=== PATIENT | female | born 1940 | race Caucasian/White ===

== ENCOUNTER 2017-06-15 06:19 | Inpatient (IN) | payer MEDICARE ==
[~2017-06-15] VITALS: Ht 160 cm; Wt 73.0 kg
[2017-06-15] MEDS: NS + KCL 20 MEQ INJ 1,000 ML IV SCH ×2 (01:13→14:00)
[~2017-06-15 06:19] MED LIST: AMLO10TA2 PO; ATOR80TA45 PO; ESTR1.25 PO; LAMO100T PO; METO50TA PO; MIRTA15 PO; WARF-22 PO
[2017-06-15] MEDS ORDERED: FAMOTIDINE 20 MG/2 ML VIAL ONE (06:54)
[2017-06-15] MEDS ORDERED: SODIUM CHLOR 0.9% 1000 ML INJ 1,000 ML IV SCH (07:00)
[2017-06-15] MEDS ORDERED: SODIUM CHLORID 0.9% 500 ML IV PRN (07:00)
[2017-06-15] MEDS ORDERED: LACTATED RINGER'S 1000 ML IV PRN (07:00)
[2017-06-15] MEDS ORDERED: VANCOMYCIN 1000 MG/NS 250 ML IV SCH ×2 (07:00)
[2017-06-15] MEDS ORDERED: POVIDONE IODINE 5% (ANTISEPSIS KIT) 4 APPLICATIONS EACH NARE PRN (07:00)
[2017-06-15] MEDS ORDERED: CHLORHEXIDINE GLUCONATE 2 % 1 PACK (2 CLOTHS) TOPICAL PRN (07:00)
[2017-06-15] MEDS ORDERED: METOPROLOL TARTRATE 25 MG TAB PO PRN (07:00)
[2017-06-15 07:08] LABS: INTERNATIONAL NORMALIZED RATIO 1.1 RATIO; PROTHROMBIN TIME - PATIENT 10.8 SEC (9.8-11.6)
[2017-06-15] MEDS ORDERED: NEXI40CA PO (07:13)
[2017-06-15] MEDS ORDERED: ARTIFICIAL TEARS OPTH OINT 3.5 APPLIC/3.5 GM TUBO ONE (07:21)
[2017-06-15] MEDS ORDERED: PROPOFOL 500 MG/50 ML INJ 150 ML ONE (07:21)
[2017-06-15] MEDS ORDERED: ACETAMINOPHEN 1000 MG/100 ML 100 ML IV ONE (07:21)
[2017-06-15] MEDS ORDERED: VANCOMYCIN HCL 1000 MG VIAL ONE (08:18)
[2017-06-15] MEDS ORDERED: GELFOAM SIZE 100 ONE (08:18)
[2017-06-15] MEDS ORDERED: GENTAMICIN SULFATE 80 MG/2 ML VIAL ONE (08:18)
[2017-06-15] MEDS ORDERED: BUPIVACAINE/EPINEPHRINE 0.5% PF 30 ML VIAL ONE (08:18)
[2017-06-15] MEDS ORDERED: THROMBIN (TOPICAL) 5,000 UNIT VIAL ONE (08:18)
[2017-06-15] MEDS ORDERED: ceFAZolin 2 GM PREMIX 50 ML ONE (08:42)
[2017-06-15] MEDS ORDERED: MORPHINE SULFATE 4 MG/ML INJ IV PUSH PRN (09:30)
[2017-06-15] MEDS ORDERED: ACETAMINOPHEN 325 MG TAB PO PRN (09:45)
[2017-06-15] MEDS ORDERED: diphenhydrAMINE HCL 50 MG/ML VIAL IV PUSH PRN (09:45)
[2017-06-15] MEDS ORDERED: NALOXONE HCL 0.4 MG/ML AMP IV PUSH PRN (09:45)
[2017-06-15] MEDS ORDERED: SODIUM CHLORID 0.9% 500 ML INJ 500 ML IV ONE (12:00)
[2017-06-15] MEDS ORDERED: ceFAZolin INJ 1,000 MG VIAL IV ONE (12:00)
[2017-06-15] MEDS ORDERED: ONDANSETRON HCL 4 MG/2 ML VIAL IV ONE (12:00)
[2017-06-15] MEDS ORDERED: PHENYLEPH/NS 1000 MCG/10 ML SYR IV ONE (12:00)
[2017-06-15] MEDS ORDERED: LIDOCAINE HCL 1% PF 5 ML SYRINGE OTHER ONE (12:00)
[2017-06-15] MEDS ORDERED: ROCURONIUM INJ 50 MG/5 ML SYRINGE IV PUSH ONE (12:00)
[2017-06-15] MEDS ORDERED: NEOSTIGMINE 5 MG/5 ML SYRINGE IV PUSH ONE (12:00)
[2017-06-15] MEDS ORDERED: PROPOFOL 200 MG/20 ML AMP IV ONE (12:00)
[2017-06-15] MEDS ORDERED: LACTATED RINGER'S 1000 ML INJ 2,000 ML IV ONE (12:00)
[2017-06-15] MEDS ORDERED: ePHEDrine/NS 25 MG/5 ML SYRINGE IV ONE (12:00)
[2017-06-15] MEDS ORDERED: DEXAMETHASONE SOD PHOS 4 MG/ML VIAL IV ONE (12:00)
[2017-06-15] MEDS ORDERED: GLYCOPYRROLATE 1 MG/5 ML SYRINGE IV PUSH ONE (12:00)
[2017-06-15] MEDS ORDERED: DO NOT ADM ANY ANTICOAGULANT DRUGS PRN (13:37)
[2017-06-15] MEDS ORDERED: MIDAZOLAM HCL 2 MG/2 ML VIAL ONE (13:55)
[2017-06-15] MEDS ORDERED: MORPHINE SULFATE 4 MG/ML INJ ONE (13:56)
[2017-06-15] MEDS: HYDROmorphone HCL PCA 6 MG/30 ML IV SCH (14:00)
[2017-06-15] MEDS: PCA - TOTAL MG DILAUDID DELIVERED PER SHIFT SCH ×2 (14:00→22:00)
--- NOTE | 2017-06-15 14:27 | RADRPT ---
EXAM DATE/TIME: 06/15/2017 09:38 [place] COMPARISON: No previous studies available for comparison. INDICATIONS : Post-op L2-L3 posterior lumbar fusion. MEDICAL HISTORY : None. SURGICAL HISTORY : None. ENCOUNTER: Initial ACUITY: 1 day PAIN SCORE: Non-responsive. LOCATION: Lumbar spine. CONCLUSION: Fluoroscopic images during placement of rods and screws at L2-3. Intervertebral disc device also seen . Jose Peters MD on June 15, 2017 at 14:23 Board Certified Radiologist. This report was verified electronically.
[2017-06-15] MEDS ORDERED: MORPHINE SULFATE 2 MG/ML INJ IV PUSH PRN (15:00)
[2017-06-15 16:05] VITALS: BP 136/71; PULSE 76; RESP 18; TEMP 98.1; O2SAT 94
[2017-06-15] MEDS: ceFAZolin 2 GM PREMIX 50 ML IV SCH (16:48)
--- NOTE | 2017-06-15 17:20 | PD.OP ---
Operative Report Date of Surgery: Jun 15, 2017 Preoperative Diagnosis: L2-3 spondylolisthesis Postoperative Diagnosis: L2-3 spondylolisthesis Procedure: L2-L3 laminectomy, interbody arthrodhesis using PEEK cage and autologous bone graft, L2-L3 instrumental fixation using transpedicular screws and rods, L2-L3 posterolateral fusion using autologous bone graft. Microsurgical dissection Anesthesia: general Surgeon: Roger Gilman [facility] Nurse Practitioner(s): Daphney Rodriguez Operation and Findings: INDICATIONS FOR THE SURGICAL PROCEDURE ms Bhatia is a 77 year-old female who presented with intractable mechanical back pain and hernando evidence of L3 left lower rextremity radiculopathy secondary to severe degenerative disk disease, spondylolisthesis, and secondary stenosis. She failed maximum nonsurgical management including multiple modalities of conservative treatment as well as pain management interventions by an interventional pain specialist. A surgical decompression and arthrodhesis were indicated as a last resort. The [id number] details of the procedure, indications, alternatives, risks and potential complications were fully discussed with the patient. The patient fully understood. All the questions were answered. No guarantees were given. The patient voiced requesting the procedure and provided informed consents. The patient was offered the alternative of delaying the procedure and continuing with nonsurgical management. DETAILS OF THE SURGICAL PROCEDURE Prior to the procedure, the surgical incision was marked in the preoperative surgical holding room, and the procedure, risks, and potential complications revisited with the patient. Placement of electrodes for intraoperative neurophysiological monitoring was completed. The patient was taken to the operative room, and following induction of general anesthesia, endotracheal intubation was performed. A He catheter, bilateral RAIN hose and sequential compression devices were placed and kept throughout the procedure. She was carefully positioned prone, over a Marco Antonio table over a soft gel bolsters. All pressure in the preoperative surgical holding room points were carefully padded with eggcrate and gel mattress. The eyes were tapped shut after ointment was applied by the anesthesiologist to prevent corneal abrasion. A Kassidy hugger was placed over the expossed lower body to maintain control of the core body temperature. The electrophysiological team placed the needles and electrodes in their proper location and baseline SSEP's and motor evoked potentials were registered. The entrance to each pedicles was marked using a C arm. The lumbar region was prepped and draped in the usual sterile fashion. The surgical procedure was performed in several steps as follow: SURGICAL APPROACH Once the patient was positioned, a localizing cross-table lateral x-ray was performed with a C-arm. Two paramedian small incisions were outlined on the skin approximately 3cm from the midline. The skin incisions were made with a # 10 blade. Small bleeders were controlled with the cautery. The dissection was then carried out into deeper planes and through the thoracolumbar fascia with a Bovie. The intermuscular septum was identified and the muscles were blunted dissected along the septum. The facets and transverse process of L2-3 were exposed and the proper anatomical landmarks were identified. A microsurgical self-retaining retractor was placed on the incision, and a localizing lateralizing cross-table x-ray was performed with an instrument underneath a lamina of the lumbar spine. INSTRUMENTAL FIXATION At this point in the procedure, placement of bilateral transpedicular screws was necessary for stabilization of the spine. Initially, the entry point for the screw was selected anatomically at the junction of the facet, with the transverse process, and the pars interarticularis at L2-3. This was started with a Giamshetti needle, followed by the use of an an wire, and then a tap was used to create the threads for the screws. Finally bilateral transpedicular screws were carefully placed bilaterally at L2-3 under fluoroscopic visualization. An appropriate purchase was achieved with all screws. The position of each screw was assessed anatomically with an AP, lateral , oblique Xrays. An intraoperative scan view of the spine was then performed using the iso-centric c-arm. Each screw was then assessed electrophysiologically stimulating each screw with a nerve stimulator. HARVESTING OF ILIAC CREST BONE A fascial incision was then made over the patient's right posterior iliac crest. The fascia was carefully opened with a Bovie and the posterior iliac crest was exposed. A small cortical window was created with an osteotome. Cancellous bone was then harvested, to be used during the interbody arthrodesis and the posterolateral fusion. Once an appropriate amount of bone was obtained , the incision was irrigated with antibiotic solution and hemostasis secured by packing the iliac crest with Surgicel. The cortical window was then repositioned and secured using 0 Vicryl sutures. The incision was irrigated and the fascia was closed with interrupted 0 Vicryl sutures. The subcutaneous tissue was approximated with 3-0 Vicryl sutures. SURGICAL DECOMPRESSION There was significant mass effect with compression of the neural structures. In order to relieve neural compression, it was necessary to perform a decompressive laminectomy, with decompression of the spinal canal and bilateral lateral recesses. Note that the scope of such decompression was significantly more extensive than the minimal exposure necessary to perform an interbody fusion, as there was extreme facet arthropathy with near complete collapse of the disk spaces and severe stenosis cause by the hyperthrophic joint facets. At this point of the procedure the operative microscope was draped in the usual sterile fashion and brought to the field. The rest of the surgical procedure was performed using microdissection technique with the exception of the closure. Under the operating microscope, a decompressive laminectomy was carried out at L3-L4as follow: The laminae, base of the spinous processes and facets were carefully drilled exposing the ligamentum flavum. The facets were abnormal with severe spondylolisthesis and gross mechanical instability. A large disk protusion was compressing the neural structures and exiting nerve roots. A near complete facetectomy was necessary resulting in further mechanical instability. The ligamentum flavum appeared hypertrophic, resulting on mass effect on the dorsal surface of the neural structures. The superior free border of the ligamentum flavum was elevated with a ligament dissector and the ligamentum flavum was removed with a 3 mm Kerrison forceps. The ligament was very adherent to the dural sac and during the dissection, ans extreme care was taken during the dissection. The exiting nerve roots were identified, and a wide foraminotomy was performed with a Kerrison in their trajectory towards the neural foramen. A small durotomy could not be avoided given the dural thinning, adhesions and scar tissue. This was repaired in a water-thigh fasion using a 6- 0 Prolene. Epidural veins located laterally to the dural sac were coagulated with the bipolar cautery, and then incised using microscissors. Gentle medial retraction of the dural sac allowed me to expose the disc space for the discectomy. Upon completion of the discectomy, an excellent decompression of the neural structures was achieved. Increased motion was noted, consistent with mechanical instability. INTERBODY ARTHRODHESIS At this point of the procedure, the annulus fibrosus of the disk was carefully coagulated with a bipolar cautery and incised using an 11 bladed knife. Then, a microdiscectomy was carried out in a standard fashion using a combination of straight and up-biting pituitary forceps. A reverse angle curette was applied underneath the posterior longitudinal ligament, and used to push the disk fragments into the disk space, so they can be safely removed with a pituitary forceps. Once the discectomy was completed, it was necessary to decorticate the endplates, in order to eliminate the cartilaginous endplate and to expose healthy bone appropriate to perform the interbody fusion. The endplates at L2-3 were then thoroughly decorticated using increasing size bone kim and ring curets, eliminating the cartilaginous fragments from both, the superior and inferior endplates. A disk space distractor was applied to the pedicle screws and gentle distraction was applied. This maneuver was assisted by the use of a disk distractor. The patient had severe facet arthropathy. Once a thorough preparation of the disk space was achieved, the disk space was irrigated with antibiotic solution, and the interbody fusion was performed by carefully impacting PPEK cages filled with autologous iliac crest bone graft. A solid position of the cage with good purchase was achieved. The position of the cages were assessed anatomically with a probe and radiologically with the C-arm. POSTEROLATERAL FUSION The posterolateral fusion is a critical component to the procedure, to prevent future fatigue and failure of the instrumental fixation. Initially, the transverse processes of the vertebral bodies, lateral surface of the facets and the lateral gutters of the spine were carefully cleaned, eliminating all soft tissue and muscle attachments. The area was then irrigated with a large amount of antibiotic solution. Subsequently, the transverse processes, lateral surface of the facets, and lateral gutters of the spine were thoroughly decorticated using the TPS drill with a 5mm cutting josemanuel, exposing cancellous bone, in preparation for the posterolateral fusion. The incision was again irrigated with antibiotic solution. Then, the posterolateral fusion was then performed by carefully packing the lateral gutters of the spine at L2-3 with autologous bone combined with demineralized bone matrix. I packed as much bone as possible. COMPLETION OF THE INSTRUMENTATION AND CLOSURE The rods were brought to the field, applied to all the screws, and the screw caps were sequentially applied. Compression was performed between the pedicle screws, and final tightening of the screws was completed using a torque wrench. The incision was again thoroughly irrigated with several liters of antibiotic solution, and hemostasis secured with the bipolar cautery. A Valsalva Maneuver performed by the anesthesiologist failed to show any evidence of cerebrospinal fluid leak or bleeding. The dural closure was reinforced using Duraseal. The incision was then closed in planes. 0 Vicryl was used in an interrupted fashion to close the thoracolumbar fascia and the superficial fascia. The subcutaneous tissue was then approximated using 3-0 Vicryl in an interrupted fashion. Special care was taken to avoid space. The skin was then closed with 4-0 Vicryl in a running, subcuticular fashion. Dermabond was applied to the skin. Each plane of closure was irrigated with antibiotic solution. At the end of the procedure the sponge, needle and instrument counts were all correct. Estimated blood loss was 250 cc. No blood transfusion was given. The entire procedure was performed using continuous electrophysiological monitoring of the somatosensorial evoked potentials and EMG. The patient received prophylactic antibiotics. The patient was then extubated and transferred to the recovery room in stable condition. Roger Gilman MD Jun 15, 2017 17:20
[2017-06-15] MEDS: MIRTAZAPINE 15 MG TAB PO SCH (20:05)
[2017-06-15] MEDS: ATORVASTATIN 80 MG TAB PO SCH (20:05)
[2017-06-15 20:32] VITALS: BP 121/72; PULSE 80; RESP 16; TEMP 97.7; O2SAT 96
[2017-06-15 23:45] VITALS: O2SAT 95
[2017-06-16 00:10] VITALS: BP 145/66; PULSE 84; RESP 16; TEMP 97.1; O2SAT 96
[2017-06-16] MEDS: ceFAZolin 2 GM PREMIX 50 ML IV SCH (01:13)
[2017-06-16 04:10] VITALS: BP 129/57; PULSE 86; RESP 16; TEMP 97.5; O2SAT 95
[2017-06-16] MEDS: HYDROmorphone HCL PCA 6 MG/30 ML IV SCH (04:23)
[2017-06-16] MEDS: NS + KCL 20 MEQ INJ 1,000 ML IV SCH (05:45)
[2017-06-16] MEDS: PCA - TOTAL MG DILAUDID DELIVERED PER SHIFT SCH ×2 (05:52→22:00)
[2017-06-16 08:00] VITALS: BP 123/63; PULSE 78; RESP 17; TEMP 97.9; O2SAT 96
[2017-06-16] MEDS ORDERED: ESTROGENS CONJUGATED 1.25 MG TAB PO SCH (09:00)
[2017-06-16] MEDS ORDERED: PANTOPRAZOLE SODIUM 40 MG VIAL IVP PRN (09:00)
[2017-06-16 09:05] LABS: AUTOMATED NEUTROPHIL # 9.8 TH/MM3 (1.8-7.7); BASOPHIL % 0.2 % (0.0-2.0); EOSINOPHIL % 0.1 % (0.0-4.0); HEMATOCRIT 30.2 % (35.0-46.0); HEMOGLOBIN 9.9 GM/DL (11.6-15.3); LYMPH % 9.9 % (9.0-44.0); LYMPHOCYTE # 1.2 TH/MM3 (1.0-4.8); MEAN CELL VOLUME 85.2 FL (80.0-100.0); MEAN CORPUSCULAR HGB CONC 32.8 % (32.0-36.0); MEAN PLATELET VOLUME 8.2 FL (7.0-11.0); MONO % 9.6 % (0.0-8.0); MONOCYTE # 1.2 TH/MM3 (0-0.9); NEUT % 80.2 % (16.0-70.0); PLATELET COUNT 298 TH/MM3 (150-450); RED BLOOD COUNT 3.54 MIL/MM3 (4.00-5.30); RED CELL DISTRIBUTION WIDTH 14.2 % (11.6-17.2); WHITE BLOOD COUNT 12.2 TH/MM3 (4.0-11.0)
[2017-06-16 09:13] LABS: BICARBONATE 23.4 MEQ/L (21.0-32.0); CALCIUM 7.9 MG/DL (8.5-10.1); CREATININE 1.44 MG/DL (0.50-1.00)
--- NOTE | 2017-06-16 09:18 | PD.CONS ---
HPI Service [facility] Hospitalists Consult Requested By Dr. Gilman Reason for Consult post operative medical management Primary Care Physician Non-Staff Diagnoses: History of Present Illness This a 77 female patient with past medical history which includes hypertension, CVA with no residual effects, anticoagulation therapy and Coumadin, hyperlipidemia, iron deficiency anemia, non-Hodgkin's lymphoma in remission, multiple renal cyst, GERD and chronic neck pain. Patient resting able to awake with verbal stimuli. We have been consulted to assist with medical management status post L2 to L3 laminectomy, interbody arthrodesis using PEEK cage and autologous bone graft, L2-L3 instrumental fixation using transpedicular screws and rods, L2-L3 posterolateral fusion using autologous bone graft. Microsurgical dissection with Dr. Gilman 06/15/17. Patient denies pain at this time on Dilaudid FINISHING TRIMMER. Patient also on strict bedrest per neurosurgery until brace arrives tomorrow. Patient reports dry mouth, offers no other complaints at this time. Review of Systems Constitutional: COMPLAINS OF: Fatigue, DENIES: Fever, Chills Respiratory: DENIES: Cough, Sputum production, Shortness of breath Cardiovascular: DENIES: Chest pain, Palpitations, Lower Extremity Edema Gastrointestinal: DENIES: Abdominal pain, Constipation, Diarrhea, Nausea, Vomiting Musculoskeletal: DENIES: Back pain, Neck pain Neurologic: DENIES: Abnormal gait, Headache, Speech Problems Psychiatric: DENIES: Anxiety, Confusion, Depression Past Family Social History Past Medical History hypertension, CVA with no residual effects, hyperlipidemia, iron deficiency anemia, non-Hodgkin's lymphoma in remission, multiple renal cyst, GERD, chronic neck pain Past Surgical History Spinal fusion 2006, discectomy, vaginal hysterectomy, colonoscopy with polypectomy, EGD positive H. pylori 2009 tumor removed left groin 2009 Reported Medications Nexium (Esomeprazole DR) 40 Mg Capdr 40 Mg PO DAILY Mirtazapine 15 Mg Tab 15 Mg PO HS Atorvastatin (Atorvastatin Calcium) 80 Mg Tab 80 Mg PO HS Lamotrigine 100 Mg Tab 100 Mg PO DAILY Amlodipine (Amlodipine Besylate) 10 Mg Tab 10 Mg PO DAILY Warfarin 10 Mg Tab 10 Mg PO DAILY Metoprolol Tartrate 50 Mg Tab 50 Mg PO DAILY Premarin (Estrogens Conjugated) 1.25 Mg Tab 1.25 Mg PO DAILY Allergies: Coded Allergies: No Known Allergies (Verified Allergy, Severe, 06/15/17) Active Ordered Medications Current Medications Medications (Trade) Dose Ordered Sig/Saurav Route Start Time Stop Time Status Last Admin Lactated Ringer's 1,000 ml @ 30 mls/hr Q24H PRN IV 06/15/17 07:00 06/18/17 06:59 06/15/17 07:00 Sodium Chloride 500 ml @ 30 mls/hr [id number] PRN IV 06/15/17 07:00 06/18/17 06:59 (Lopressor) 25 mg ELEVATING GRADER OPERATOR PRN PO 06/15/17 07:00 06/18/17 06:59 (Betadine 5% Antisepsis Kit) 1 applic ELEVATING GRADER OPERATOR PRN EACH NARE 06/15/17 07:00 06/18/17 06:59 06/15/17 07:00 (Chlorhexidine 2% Cloth) 3 pack ELEVATING GRADER OPERATOR PRN TOPICAL 06/15/17 07:00 06/18/17 06:59 06/15/17 06:30 Potassium Chloride/Sodium Chloride 1,000 ml @ 100 mls/hr Q10H IV 06/15/17 09:45 06/15/17 01:13 Cefazolin Sodium/ Dextrose 50 ml @ 100 mls/hr Q8H IV 06/15/17 17:00 06/16/17 09:29 06/16/17 01:13 (Protonix Inj) 40 mg DAILY PRN IVP 06/16/17 09:00 (Morphine Inj) 2 mg Q4H PRN IV PUSH 06/15/17 15:00 (Tylenol) 650 mg Q4H PRN PO 06/15/17 09:45 (Narcan Inj) 0.4 mg UNSCH PRN IV PUSH 06/15/17 09:45 (Benadryl Inj) 25 mg Q6H PRN IV PUSH 06/15/17 09:45 (Dilaudid FINISHING TRIMMER Inj) 6 mg UNSCH IV 06/15/17 10:00 06/16/17 04:23 FINISHING TRIMMER Dosage Infused (Pha) 1 Q8HR .XX 06/15/17 14:00 06/16/17 05:52 (Norvasc) 10 mg DAILY PO 06/16/17 09:00 (Lipitor) 80 mg HS PO 06/15/17 21:00 06/15/17 20:05 (Premarin) 1.25 mg DAILY PO 06/16/17 09:00 Future Hold (LaMICtal) 100 mg DAILY PO 06/16/17 09:00 (Lopressor) 50 mg DAILY PO 06/16/17 09:00 (Remeron) 15 mg HS PO 06/15/17 21:00 06/15/17 20:05 (Protonix) 40 mg DAILY PO 06/16/17 09:00 Miscellaneous Information ALL NURSING DEPARTME... UNSCH PRN .XX 06/15/17 13:37 06/16/17 13:36 (Flu (Quadrivalent) Vaccine Inj) 0.5 ml ONCE ONCE IM 06/16/17 10:00 06/16/17 10:01 Family History Reviewed and noncontributory Social History Lives alone Never smoked Denies EtOH use Physical Exam Vital Signs Vital Signs Date Time Temp Pulse Resp B/P (MAP) Pulse Ox O2 Delivery O2 Flow Rate FiO2 06/16/17 05:52 15 06/16/17 04:23 16 06/16/17 04:10 97.5 86 16 129/57 (81) 95 06/16/17 00:10 97.1 84 16 145/66 (92) 96 06/15/17 23:45 95 Nasal Cannula 2.00 06/15/17 22:00 16 06/15/17 20:32 97.7 80 16 121/72 (88) 96 06/15/17 16:05 98.1 76 18 136/71 (92) 94 06/15/17 15:40 79 16 122/57 (78) 93 Nasal Cannula 2 06/15/17 15:30 76 16 125/60 (81) 93 Nasal Cannula 2 06/15/17 15:15 79 16 122/61 (81) 93 Nasal Cannula 2 06/15/17 15:00 77 16 124/59 (80) 93 Nasal Cannula 2 06/15/17 14:45 79 16 110/61 (77) 95 Nasal Cannula 2 06/15/17 14:30 75 16 121/64 (83) 94 Nasal Cannula 2 06/15/17 14:15 79 16 117/57 (77) 94 Nasal Cannula 2 06/15/17 14:00 77 16 116/58 (77) 94 Nasal Cannula 2 06/15/17 14:00 16 06/15/17 13:43 98.1 84 16 114/57 (76) 94 Nasal Cannula 3 Physical Exam GENERAL: This is a well-nourished, well-developed patient, drowsy on FINISHING TRIMMER but in no apparent distress. EYES: Extraocular motions intact. No scleral icterus. No injection or drainage. CARDIOVASCULAR: Regular rate and rhythm RESPIRATORY: Clear to auscultation. Breath sounds equal bilaterally. GASTROINTESTINAL: Abdomen soft, non-tender, nondistended. MUSCULOSKELETAL: Extremities without clubbing, cyanosis, or edema. No joint tenderness, effusion, or edema noted. No calf tenderness. Negative Homans sign bilaterally. NEUROLOGICAL: drowsy able to awake to voice. No focal deficits. Motor and sensory grossly within normal limits. 4-5 out of 5 muscle strength in all muscle groups. Normal speech. Laboratory Laboratory Tests Test 06/16/17 08:01 Assessment and Plan Problem List: (1) Spondylolisthesis at L2-L3 level ICD Codes: M43.16 - Spondylolisthesis, lumbar region Plan: - Status post L2 to L3 laminectomy, interbody arthrodesis using PEEK cage and autologous bone graft, L2-L3 instrumental fixation using transpedicular screws and rods, L2-L3 posterolateral fusion using autologous bone graft. Microsurgical dissection with Dr. Gilman 06/15/17 - Pain management with Dilaudid FINISHING TRIMMER (2) HTN (hypertension) ICD Codes: I10 - Essential (primary) hypertension Plan: - Chronic continue patient's home Amlodipine 10 mg PO daily - monitor BP trend (3) CVA (cerebral vascular accident) ICD Codes: I63.9 - Cerebral infarction, unspecified Plan: - Continue home Atorvastatin 80mg - on Coumadin at home which is currently on hold due to surgery (4) Non-Hodgkin lymphoma ICD Codes: C85.90 - Non-Hodgkin lymphoma, unspecified, unspecified site Plan: Follows with Dr. Kumar (5) Hyperlipidemia ICD Codes: E78.5 - Hyperlipidemia, unspecified Plan: - Continues atorvastatin 80 mg PO daily Assessment and Plan Patient examined. Assessment and plan formulated with Agatha Wei PA-C. I agree with the above. - appropriate home medications resumed - will resume anticoagulation when okay with Dr. Gilman - observe blood pressure readings. Agatha Wei Jun 16, 2017 09:18 Garrick Del Real DO Jun 17, 2017 14:04
[2017-06-16] MEDS: lamoTRIgine 100 MG TAB PO SCH (09:19)
[2017-06-16] MEDS: PANTOPRAZOLE SOD 40 MG DELAYED RELEASE TAB PO SCH (09:20)
[2017-06-16] MEDS: METOPROLOL TARTRATE 50 MG TAB PO SCH (09:20)
--- NOTE | 2017-06-16 09:33 | HHI.NSPN ---
(Geri Vallecillo) Note Status Status: Progress Note (Geri Vallecillo) Interval History Interval History Ms. Bhatia s/p L2-L3 laminectomy, interbody arthrodhesis using PEEK cage and autologous bone graft, L2-L3 instrumental fixation using transpedicular screws and rods, L2-L3 posterolateral fusion using autologous bone graft. Microsurgical dissection on 06/15/17 for spondylolisthesis. 06/16: Surgical pain controlled on RN LICENSED PRACTICAL, reports if she does not press the button she will have severe surgical pain. Denies chest pain, shortness of breath, or difficulty breathing. (Geri Vallecillo) Labs, Micro, & Vital Signs Results Date Time Temp Pulse Resp B/P (MAP) Pulse Ox O2 Delivery O2 Flow Rate FiO2 06/16/17 05:52 15 06/16/17 04:23 16 06/16/17 04:10 97.5 86 16 129/57 (81) 95 06/16/17 00:10 97.1 84 16 145/66 (92) 96 06/15/17 23:45 95 Nasal Cannula 2.00 06/15/17 22:00 16 06/15/17 20:32 97.7 80 16 121/72 (88) 96 06/15/17 16:05 98.1 76 18 136/71 (92) 94 06/15/17 15:40 79 16 122/57 (78) 93 Nasal Cannula 2 06/15/17 15:30 76 16 125/60 (81) 93 Nasal Cannula 2 06/15/17 15:15 79 16 122/61 (81) 93 Nasal Cannula 2 06/15/17 15:00 77 16 124/59 (80) 93 Nasal Cannula 2 06/15/17 14:45 79 16 110/61 (77) 95 Nasal Cannula 2 06/15/17 14:30 75 16 121/64 (83) 94 Nasal Cannula 2 06/15/17 14:15 79 16 117/57 (77) 94 Nasal Cannula 2 06/15/17 14:00 77 16 116/58 (77) 94 Nasal Cannula 2 06/15/17 14:00 16 06/15/17 13:43 98.1 84 16 114/57 (76) 94 Nasal Cannula 3 Constitutional Vital Signs Date Time Temp Pulse Resp B/P (MAP) Pulse Ox O2 Delivery O2 Flow Rate FiO2 06/16/17 05:52 15 06/16/17 04:23 16 06/16/17 04:10 97.5 86 16 129/57 (81) 95 06/16/17 00:10 97.1 84 16 145/66 (92) 96 06/15/17 23:45 95 Nasal Cannula 2.00 06/15/17 22:00 16 06/15/17 20:32 97.7 80 16 121/72 (88) 96 06/15/17 16:05 98.1 76 18 136/71 (92) 94 06/15/17 15:40 79 16 122/57 (78) 93 Nasal Cannula 2 06/15/17 15:30 76 16 125/60 (81) 93 Nasal Cannula 2 06/15/17 15:15 79 16 122/61 (81) 93 Nasal Cannula 2 06/15/17 15:00 77 16 124/59 (80) 93 Nasal Cannula 2 06/15/17 14:45 79 16 110/61 (77) 95 Nasal Cannula 2 06/15/17 14:30 75 16 121/64 (83) 94 Nasal Cannula 2 06/15/17 14:15 79 16 117/57 (77) 94 Nasal Cannula 2 06/15/17 14:00 77 16 116/58 (77) 94 Nasal Cannula 2 06/15/17 14:00 16 06/15/17 13:43 98.1 84 16 114/57 (76) 94 Nasal Cannula 3 (Geri Vallecillo) Physical Exam Ms. Bhatia is awake and oriented to time, place and person. Speech is fluent. Follows commands well. Cranial nerve: pupils equal, round, and reactive to light. EOMs are intact. Facial motor a are normal and symmetrical. Neck is soft and supple. Motor: gross movements to both upper and lower extremities. exam limited in the LE's due to current surgical pain Respiratory; clear, nonlabored breathing, no wheezing Heart: NSR (Geri Vallecillo) Medications Current Medications Current Medications Medications (Trade) Dose Ordered Sig/Saurav Route PRN Reason Start Time Stop Time Status Last Admin Dose Admin Lactated Ringer's 1,000 ml @ 30 mls/hr Q24H PRN IV SEE LABEL COMMENTS 06/15/17 07:00 06/18/17 06:59 06/15/17 07:00 Sodium Chloride 500 ml @ 30 mls/hr [id number] PRN IV SEE LABEL COMMENTS 06/15/17 07:00 06/18/17 06:59 Metoprolol Tartrate (Lopressor) 25 mg CIRCULATION WORKER PRN PO SEE LABEL COMMENTS 06/15/17 07:00 06/18/17 06:59 Povidone Iodine (Betadine 5% Antisepsis Kit) 1 applic CIRCULATION WORKER PRN EACH NARE SEE LABEL COMMENTS 06/15/17 07:00 06/18/17 06:59 06/15/17 07:00 Chlorhexidine Gluconate (Chlorhexidine 2% Cloth) 3 pack CIRCULATION WORKER PRN TOPICAL SEE LABEL COMMENTS 06/15/17 07:00 06/18/17 06:59 06/15/17 06:30 Potassium Chloride/Sodium Chloride 1,000 ml @ 100 mls/hr Q10H IV 06/15/17 09:45 06/15/17 01:13 Cefazolin Sodium/ Dextrose 50 ml @ 100 mls/hr Q8H IV 06/15/17 17:00 06/16/17 09:29 06/16/17 01:13 Pantoprazole Sodium (Protonix Inj) 40 mg DAILY PRN IVP SEE LABEL COMMENTS 06/16/17 09:00 Morphine Sulfate (Morphine Inj) 2 mg Q4H PRN IV PUSH BREAKTHROUGH 06/15/17 15:00 Acetaminophen (Tylenol) 650 mg Q4H PRN PO TEMPERATURE > 101.5 F 06/15/17 09:45 Naloxone HCl (Narcan Inj) 0.4 mg UNSCH PRN IV PUSH RESPIRATORY RATE LESS THAN 10 06/15/17 09:45 Diphenhydramine HCl (Benadryl Inj) 25 mg Q6H PRN IV PUSH ITCHING 06/15/17 09:45 Hydromorphone HCl (Dilaudid RN LICENSED PRACTICAL Inj) 6 mg UNSCH IV 06/15/17 10:00 06/16/17 04:23 RN LICENSED PRACTICAL Dosage Infused (Pha) 1 Q8HR .XX 06/15/17 14:00 06/16/17 05:52 Amlodipine Besylate (Norvasc) 10 mg DAILY PO 06/16/17 09:00 Atorvastatin Calcium (Lipitor) 80 mg HS PO 06/15/17 21:00 06/15/17 20:05 Estrogens Conjugated (Premarin) 1.25 mg DAILY PO 06/16/17 09:00 Future Hold Lamotrigine (LaMICtal) 100 mg DAILY PO 06/16/17 09:00 Metoprolol Tartrate (Lopressor) 50 mg DAILY PO 06/16/17 09:00 Mirtazapine (Remeron) 15 mg HS PO 06/15/17 21:00 06/15/17 20:05 Pantoprazole Sodium (Protonix) 40 mg DAILY PO 06/16/17 09:00 Miscellaneous Information ALL NURSING DEPARTME... UNSCH PRN .XX SEE LABEL COMMENTS 06/15/17 13:37 06/16/17 13:36 Influenza Virus Vaccine (Flu (Quadrivalent) Vaccine Inj) 0.5 ml ONCE ONCE IM 06/16/17 10:00 06/16/17 10:01 (Geri Vallecillo) Medical Decision Making MDM Remarks 77 y/o female s/p L2-3 laminectomy with interbody arthrodesis using PEEK cage bone graft, transpedicular screws and rods 06/15/17 (Geri Vallecillo) Plan Plan Remarks cont strict bed rest today per Dr. Gilman - start mobilizing tomorrow dw PT, ok for gentle leg exercises SCDs and TEDs for dvt prophylaxis, cleared to start Lovenox per Dr. Gilman continue RN LICENSED PRACTICAL for pain control IS every hour medical management assistance appreciated (Geri Vallecillo) Attending Statement The exam, history, and the medical decision-making described in the above note were completed with the assistance of the mid-level provider. I reviewed and agree with the findings presented. I attest that I had a [id number] encounter with the patient on the same day, and personally performed and documented my assessment and findings in the medical record. (Roger Gilman MD) Geri Vallecillo Jun 16, 2017 09:33 Roger Gilman MD Jun 16, 2017 14:45
[2017-06-16] MEDS ORDERED: INFLUENZA VIRUS VACCINE (QUADRIVALENT) 0.5 ML SYR IM ONE (10:00)
[2017-06-16 12:00] VITALS: BP 128/72; PULSE 80; RESP 17; TEMP 97.4; O2SAT 95
[2017-06-16] MEDS: ENOXAPARIN SODIUM 40 MG/0.4 ML SYRINGE SQ SCH (14:34)
[2017-06-16 16:00] VITALS: BP 135/58; PULSE 79; RESP 17; TEMP 98.1; O2SAT 95
[2017-06-16 19:46] VITALS: BP 135/66; PULSE 83; RESP 17; TEMP 96.9; O2SAT 93
[2017-06-16] MEDS: ATORVASTATIN 80 MG TAB PO SCH (22:01)
[2017-06-16] MEDS: MIRTAZAPINE 15 MG TAB PO SCH (22:01)
[2017-06-17] VITALS (7 sets, daily range): BP systolic 128–179; BP diastolic 54–95; PULSE 82–100; RESP 12–18; TEMP 97.5–99.7; O2SAT 91–95
[2017-06-17] MEDS: NS + KCL 20 MEQ INJ 1,000 ML IV SCH ×2 (01:45→15:51)
[2017-06-17] MEDS: PCA - TOTAL MG DILAUDID DELIVERED PER SHIFT SCH ×2 (06:00→22:00)
[2017-06-17] MEDS: PANTOPRAZOLE SOD 40 MG DELAYED RELEASE TAB PO SCH (08:52)
[2017-06-17] MEDS: lamoTRIgine 100 MG TAB PO SCH (08:53)
[2017-06-17] MEDS: METOPROLOL TARTRATE 50 MG TAB PO SCH (08:53)
[2017-06-17] MEDS: HYDROmorphone HCL PCA 6 MG/30 ML IV SCH (11:41)
--- NOTE | 2017-06-17 13:45 | HHI.NSPN ---
(Geri Vallecillo) Note Status Status: Progress Note (Geri Vallecillo) Interval History Interval History Ms. Bhatia s/p L2-L3 laminectomy, interbody arthrodhesis using PEEK cage and autologous bone graft, L2-L3 instrumental fixation using transpedicular screws and rods, L2-L3 posterolateral fusion using autologous bone graft. Microsurgical dissection on 06/15/17 for spondylolisthesis. 06/16: Surgical pain controlled on ARTIST MANAGER, reports if she does not press the button she will have severe surgical pain. Denies chest pain, shortness of breath, or difficulty breathing. 06/17: reports of stiffness, and increase pain if she tries to move. (Geri Vallecillo) Labs, Micro, & Vital Signs Results Date Time Temp Pulse Resp B/P (MAP) Pulse Ox O2 Delivery O2 Flow Rate FiO2 06/17/17 11:55 99.6 99 17 144/95 (111) 95 06/17/17 11:41 16 06/17/17 10:36 93 Nasal Cannula 3.00 06/17/17 07:59 99.2 90 17 129/54 (79) 93 06/17/17 06:00 18 06/17/17 04:50 97.9 82 18 128/65 (86) 93 06/17/17 00:18 98.3 91 18 152/78 (102) 93 06/16/17 22:00 18 06/16/17 19:46 96.9 83 17 135/66 (89) 93 06/16/17 16:00 98.1 79 17 135/58 (83) 95 Constitutional Vital Signs Date Time Temp Pulse Resp B/P (MAP) Pulse Ox O2 Delivery O2 Flow Rate FiO2 06/17/17 11:55 99.6 99 17 144/95 (111) 95 06/17/17 11:41 16 06/17/17 10:36 93 Nasal Cannula 3.00 06/17/17 07:59 99.2 90 17 129/54 (79) 93 06/17/17 06:00 18 06/17/17 04:50 97.9 82 18 128/65 (86) 93 06/17/17 00:18 98.3 91 18 152/78 (102) 93 06/16/17 22:00 18 06/16/17 19:46 96.9 83 17 135/66 (89) 93 06/16/17 16:00 98.1 79 17 135/58 (83) 95 (Geri Vallecillo) Physical Exam Ms. Bhatia is awake and oriented to time, place and person. Speech is fluent. Follows commands well. Cranial nerve: pupils equal, round, and reactive to light. EOMs are intact. Facial motor a are normal and symmetrical. Neck is soft and supple. Motor: gross movements to both upper and lower extremities. exam limited in the LE's due to current surgical pain Respiratory; clear, nonlabored breathing, no wheezing Heart: NSR (Geri Vallecillo) Medications Current Medications Current Medications Medications (Trade) Dose Ordered Sig/Saurav Route PRN Reason Start Time Stop Time Status Last Admin Dose Admin Lactated Ringer's 1,000 ml @ 30 mls/hr Q24H PRN IV SEE LABEL COMMENTS 06/15/17 07:00 06/18/17 06:59 06/15/17 07:00 Sodium Chloride 500 ml @ 30 mls/hr [id number] PRN IV SEE LABEL COMMENTS 06/15/17 07:00 06/18/17 06:59 Metoprolol Tartrate (Lopressor) 25 mg SPLITTER HAND PRN PO SEE LABEL COMMENTS 06/15/17 07:00 06/18/17 06:59 Povidone Iodine (Betadine 5% Antisepsis Kit) 1 applic SPLITTER HAND PRN EACH NARE SEE LABEL COMMENTS 06/15/17 07:00 06/18/17 06:59 06/15/17 07:00 Chlorhexidine Gluconate (Chlorhexidine 2% Cloth) 3 pack SPLITTER HAND PRN TOPICAL SEE LABEL COMMENTS 06/15/17 07:00 06/18/17 06:59 06/15/17 06:30 Potassium Chloride/Sodium Chloride 1,000 ml @ 100 mls/hr Q10H IV 06/15/17 09:45 06/17/17 01:45 Pantoprazole Sodium (Protonix Inj) 40 mg DAILY PRN IVP SEE LABEL COMMENTS 06/16/17 09:00 Morphine Sulfate (Morphine Inj) 2 mg Q4H PRN IV PUSH BREAKTHROUGH 06/15/17 15:00 06/16/17 17:45 Acetaminophen (Tylenol) 650 mg Q4H PRN PO TEMPERATURE > 101.5 F 06/15/17 09:45 Naloxone HCl (Narcan Inj) 0.4 mg UNSCH PRN IV PUSH RESPIRATORY RATE LESS THAN 10 06/15/17 09:45 Diphenhydramine HCl (Benadryl Inj) 25 mg Q6H PRN IV PUSH ITCHING 06/15/17 09:45 Hydromorphone HCl (Dilaudid ARTIST MANAGER Inj) 6 mg UNSCH IV 06/15/17 10:00 06/17/17 11:41 ARTIST MANAGER Dosage Infused (Pha) 1 Q8HR .XX 06/15/17 14:00 06/17/17 06:00 Amlodipine Besylate (Norvasc) 10 mg DAILY PO 06/16/17 09:00 06/17/17 08:53 Atorvastatin Calcium (Lipitor) 80 mg HS PO 06/15/17 21:00 06/16/17 22:01 Estrogens Conjugated (Premarin) 1.25 mg DAILY PO 06/16/17 09:00 Future Hold 06/16/17 09:20 Lamotrigine (LaMICtal) 100 mg DAILY PO 06/16/17 09:00 06/17/17 08:53 Metoprolol Tartrate (Lopressor) 50 mg DAILY PO 06/16/17 09:00 06/17/17 08:53 Mirtazapine (Remeron) 15 mg HS PO 06/15/17 21:00 06/16/17 22:01 Pantoprazole Sodium (Protonix) 40 mg DAILY PO 06/16/17 09:00 06/17/17 08:52 Enoxaparin Sodium (Lovenox Inj) 40 mg Q24H SQ 06/16/17 13:00 06/16/17 14:34 (Geri Vallecillo) Medical Decision Making MDM Remarks 77 y/o female s/p L2-3 laminectomy with interbody arthrodesis using PEEK cage bone graft, transpedicular screws and rods 06/15/17 (Geri Vallecillo) Plan Plan Remarks start mobilizing SCDs and TEDs for dvt prophylaxis, lovenox continue ARTIST MANAGER for pain control IS every hour medical management assistance appreciated (Geri Vallecillo) Attending Statement The exam, history, and the medical decision-making described in the above note were completed with the assistance of the mid-level provider. I reviewed and agree with the findings presented. I attest that I had a [id number] encounter with the patient on the same day, and personally performed and documented my assessment and findings in the medical record. (Roger Gilman MD) Geri Vallecillo Jun 17, 2017 13:45 Roger Gilman MD Jun 19, 2017 12:40
[2017-06-17] MEDS: ENOXAPARIN SODIUM 40 MG/0.4 ML SYRINGE SQ SCH (13:56)
[2017-06-17] MEDS: MIRTAZAPINE 15 MG TAB PO SCH (20:05)
[2017-06-17] MEDS: ATORVASTATIN 80 MG TAB PO SCH (20:05)
[2017-06-18] MEDS: NS + KCL 20 MEQ INJ 1,000 ML IV SCH ×4 (00:31→22:44)
[2017-06-18 00:35] VITALS: BP 145/66; PULSE 97; RESP 14; TEMP 99.9; O2SAT 94
[2017-06-18] MEDS: HYDROmorphone HCL PCA 6 MG/30 ML IV SCH ×3 (01:13→21:01)
[2017-06-18 04:35] VITALS: BP 148/66; PULSE 87; RESP 12; TEMP 100.2; O2SAT 93
[2017-06-18 05:47] LABS: BASOPHIL # 0.1 TH/MM3 (0-0.2); BASOPHIL % 0.9 % (0.0-2.0); EOSINOPHIL # 0.1 TH/MM3 (0-0.4); EOSINOPHIL % 1.3 % (0.0-4.0); HEMATOCRIT 27.9 % (35.0-46.0); HEMOGLOBIN 9.5 GM/DL (11.6-15.3); LYMPH % 14.9 % (9.0-44.0); LYMPHOCYTE # 1.2 TH/MM3 (1.0-4.8); MEAN CELL VOLUME 85.1 FL (80.0-100.0); MEAN CORPUSCULAR HGB CONC 34.1 % (32.0-36.0); MEAN PLATELET VOLUME 8.1 FL (7.0-11.0); MONO % 9.6 % (0.0-8.0); MONOCYTE # 0.8 TH/MM3 (0-0.9); NEUT % 73.3 % (16.0-70.0); PLATELET COUNT 190 TH/MM3 (150-450); RED BLOOD COUNT 3.28 MIL/MM3 (4.00-5.30); RED CELL DISTRIBUTION WIDTH 14.5 % (11.6-17.2); WHITE BLOOD COUNT 8.1 TH/MM3 (4.0-11.0)
[2017-06-18] MEDS: PCA - TOTAL MG DILAUDID DELIVERED PER SHIFT SCH ×3 (05:52→22:00)
[2017-06-18 06:21] LABS: BICARBONATE 27.4 MEQ/L (21.0-32.0); CREATININE 0.55 MG/DL (0.50-1.00)
[2017-06-18 08:00] VITALS: BP 127/62; PULSE 89; RESP 15; TEMP 98.4; O2SAT 93
[2017-06-18] MEDS: METOPROLOL TARTRATE 50 MG TAB PO SCH (10:48)
[2017-06-18] MEDS: PANTOPRAZOLE SOD 40 MG DELAYED RELEASE TAB PO SCH (10:48)
[2017-06-18] MEDS: lamoTRIgine 100 MG TAB PO SCH (10:48)
[2017-06-18 12:00] VITALS: BP 112/74; PULSE 102; RESP 17; TEMP 98.7; O2SAT 93
[2017-06-18] MEDS: ENOXAPARIN SODIUM 40 MG/0.4 ML SYRINGE SQ SCH (13:00)
[2017-06-18 16:00] VITALS: BP 142/69; PULSE 83; RESP 17; TEMP 96.3; O2SAT 94
[2017-06-18 20:45] VITALS: BP 170/74; PULSE 86; RESP 16; TEMP 98.3; O2SAT 94
[2017-06-18] MEDS: ATORVASTATIN 80 MG TAB PO SCH (22:42)
[2017-06-18] MEDS: MIRTAZAPINE 15 MG TAB PO SCH (22:42)
[2017-06-19 00:45] VITALS: BP 124/60; PULSE 73; RESP 18; TEMP 98.8; O2SAT 96
[2017-06-19 03:55] VITALS: BP 131/60; PULSE 98; RESP 18; TEMP 98; O2SAT 95
[2017-06-19] MEDS: PCA - TOTAL MG DILAUDID DELIVERED PER SHIFT SCH ×3 (06:00→22:00)
[2017-06-19] MEDS: HYDROmorphone HCL PCA 6 MG/30 ML IV SCH (06:27)
[2017-06-19 08:00] VITALS: BP 161/86; PULSE 111; RESP 16; TEMP 98.2; O2SAT 94
[2017-06-19] MEDS: PANTOPRAZOLE SOD 40 MG DELAYED RELEASE TAB PO SCH (08:26)
[2017-06-19] MEDS: lamoTRIgine 100 MG TAB PO SCH (08:26)
[2017-06-19] MEDS: METOPROLOL TARTRATE 50 MG TAB PO SCH (08:26)
[2017-06-19] MEDS ORDERED: oxyCODONE/ACETAMINOPHEN 10 MG/325 MG TAB PO PRN (11:00)
--- NOTE | 2017-06-19 11:03 | HHI.DCPOC ---
Discharge Care Plan Diagnosis: (1) S/P lumbar spinal fusion Goals to Promote Your Health * To prevent worsening of your condition and complications * To maintain your health at the optimal level Directions to Meet Your Goals Take your medications as prescribed Follow your dietary instruction Follow activity as directed Keep your appointments as scheduled Take your immunizations and boosters as scheduled If your symptoms worsen call your PCP, if no PCP go to Urgent Care Center or Emergency Room Smoking is Dangerous to Your Health. Avoid second hand smoke Call the 24-hour hour crisis hotline for domestic abuse at Geri Vallecillo Jun 19, 2017 11:03
[2017-06-19 12:00] VITALS: BP 161/74; PULSE 87; RESP 16; TEMP 98.9; O2SAT 96
[2017-06-19] MEDS: oxyCODONE/ACETAMINOPHEN 10 MG/325 MG TAB PO PRN ×3 (12:10→19:55)
[2017-06-19] MEDS: NS + KCL 20 MEQ INJ 1,000 ML IV SCH (12:11)
[2017-06-19] MEDS: ENOXAPARIN SODIUM 40 MG/0.4 ML SYRINGE SQ SCH (12:11)
[2017-06-19] MEDS ORDERED: OXYC1TAB36 PO (13:29)
[2017-06-19] MEDS ORDERED: BISACODYL 10 MG SUPP RECTAL ONE (13:30)
[2017-06-19] MEDS ORDERED: MAGNESIUM CITRATE SOLN 300 ML BTL PO ONE (13:30)
[2017-06-19 17:40] VITALS: BP 143/72; PULSE 83
--- NOTE | 2017-06-19 18:34 | HHI.NSPN ---
Note Status Status: Progress Note Interval History Interval History Ms. Bhatia s/p L2-L3 laminectomy, interbody arthrodhesis using PEEK cage and autologous bone graft, L2-L3 instrumental fixation using transpedicular screws and rods, L2-L3 posterolateral fusion using autologous bone graft. Microsurgical dissection on 06/15/17 for spondylolisthesis. 06/16: Surgical pain controlled on YOKER, reports if she does not press the button she will have severe surgical pain. Denies chest pain, shortness of breath, or difficulty breathing. 06/17: reports of stiffness, and increase pain if she tries to move. 06/19: pt seen around 10am this morning during rounds. Labs, Micro, & Vital Signs Results Date Time Temp Pulse Resp B/P (MAP) Pulse Ox O2 Delivery O2 Flow Rate FiO2 06/19/17 17:40 83 143/72 (95) 06/19/17 17:40 Room Air 06/19/17 12:00 98.9 87 16 161/74 (103) 96 06/19/17 08:00 98.2 111 16 161/86 (111) 94 06/19/17 06:27 19 06/19/17 06:00 19 06/19/17 03:55 98.0 98 18 131/60 (83) 95 06/19/17 00:45 98.8 73 18 124/60 (81) 96 06/18/17 23:36 Nasal Cannula 2.00 06/18/17 22:00 19 06/18/17 21:31 19 06/18/17 21:01 19 06/18/17 20:45 98.3 86 16 170/74 (106) 94 06/20/17 07:00 Intake Total 510 ml Output Total 220 ml Balance 290 ml Constitutional Vital Signs Date Time Temp Pulse Resp B/P (MAP) Pulse Ox O2 Delivery O2 Flow Rate FiO2 06/19/17 17:40 83 143/72 (95) 06/19/17 17:40 Room Air 06/19/17 12:00 98.9 87 16 161/74 (103) 96 06/19/17 08:00 98.2 111 16 161/86 (111) 94 06/19/17 06:27 19 06/19/17 06:00 19 06/19/17 03:55 98.0 98 18 131/60 (83) 95 06/19/17 00:45 98.8 73 18 124/60 (81) 96 06/18/17 23:36 Nasal Cannula 2.00 06/18/17 22:00 19 06/18/17 21:31 19 06/18/17 21:01 19 06/18/17 20:45 98.3 86 16 170/74 (106) 94 06/20/17 07:00 Intake Total 510 ml Output Total 220 ml Balance 290 ml Physical Exam Ms. Bhatia is awake and oriented to time, place and person. Speech is fluent. Follows commands well. Cranial nerve: pupils equal, round, and reactive to light. EOMs are intact. Facial motor a are normal and symmetrical. Neck is soft and supple. Motor: gross movements to both upper and lower extremities. exam limited in the LE's due to current surgical pain Respiratory; clear, nonlabored breathing, no wheezing Heart: NSR Medical Decision Making MDM Remarks 77 y/o female s/p L2-3 laminectomy with interbody arthrodesis using PEEK cage bone graft, transpedicular screws and rods 06/15/17 Plan Plan Remarks encourage mobilization dc YOKER, start oral meds for pain control lovenox, SCDs and TEDs for dvt prophylaxis IS every hour change optifoam dressing Dr. Kalina crabtree dc to [facility] return to office 06/29/17 for suture removal Geri Vallecillo Jun 19, 2017 18:34
[2017-06-19] MEDS: ATORVASTATIN 80 MG TAB PO SCH (19:54)
[2017-06-19] MEDS: MIRTAZAPINE 15 MG TAB PO SCH (19:55)
[2017-06-19 20:15] VITALS: BP 156/82; PULSE 97; RESP 18; TEMP 97.4; O2SAT 94
[2017-06-20] MEDS: oxyCODONE/ACETAMINOPHEN 10 MG/325 MG TAB PO PRN ×3 (00:11→10:07)
[2017-06-20 00:25] VITALS: BP 132/82; PULSE 92; RESP 18; TEMP 96.9; O2SAT 95
[2017-06-20] MEDS: PCA - TOTAL MG DILAUDID DELIVERED PER SHIFT SCH ×2 (06:00→10:59)
[2017-06-20 08:00] VITALS: BP 173/77; PULSE 75; RESP 18; TEMP 96.1; O2SAT 94
[2017-06-20] MEDS: METOPROLOL TARTRATE 50 MG TAB PO SCH (10:07)
[2017-06-20] MEDS: lamoTRIgine 100 MG TAB PO SCH (10:07)
[2017-06-20] MEDS: PANTOPRAZOLE SOD 40 MG DELAYED RELEASE TAB PO SCH (10:07)
--- NOTE | 2017-06-20 10:50 | HHI.NSPN ---
(Geri Vallecillo) Note Status Status: Progress Note (Geri Vallecillo) Interval History Interval History Ms. Bhatia s/p L2-L3 laminectomy, interbody arthrodhesis using PEEK cage and autologous bone graft, L2-L3 instrumental fixation using transpedicular screws and rods, L2-L3 posterolateral fusion using autologous bone graft. Microsurgical dissection on 06/15/17 for spondylolisthesis. 06/16: Surgical pain controlled on CRADLE SLIDE MAKER, reports if she does not press the button she will have severe surgical pain. Denies chest pain, shortness of breath, or difficulty breathing. 06/17: reports of stiffness, and increase pain if she tries to move. 06/19: pt seen around 10am this morning during rounds. 06/20: patient still reports of moderate stiffness and pain in low back. PT in room now to mobilize. dc planning to SNF. +multiple BM (Geri Vallecillo) Labs, Micro, & Vital Signs Results Date Time Temp Pulse Resp B/P (MAP) Pulse Ox O2 Delivery O2 Flow Rate FiO2 06/20/17 00:25 96.9 92 18 132/82 (99) 95 06/19/17 20:15 97.4 97 18 156/82 (106) 94 06/19/17 17:40 83 143/72 (95) 06/19/17 17:40 Room Air 06/19/17 12:00 98.9 87 16 161/74 (103) 96 Constitutional Vital Signs Date Time Temp Pulse Resp B/P (MAP) Pulse Ox O2 Delivery O2 Flow Rate FiO2 06/20/17 00:25 96.9 92 18 132/82 (99) 95 06/19/17 20:15 97.4 97 18 156/82 (106) 94 06/19/17 17:40 83 143/72 (95) 06/19/17 17:40 Room Air 06/19/17 12:00 98.9 87 16 161/74 (103) 96 (Geri Vallecillo) Review of Systems Constitutional: DENIES: Fever, Chills Cardiovascular: DENIES: Chest pain Musculoskeletal: COMPLAINS OF: Joint pain, Stiffness, Back pain, Neck pain ( Geri Vallecillo) Physical Exam Ms. Bhatia is awake and oriented. Cranial nerve: pupils 4mm equal, round, and reactive to light. EOMs are intact. Facial motor a are normal and symmetrical. Motor: moves upper extremities well. exam limited in the LE's due to current surgical pain grossly 4-5 Respiratory: clear Heart: NSR Wound covered with clean, dry Optifoam dressing. Skin: warm and dry (Geri Vallecillo) Medications Current Medications Current Medications Medications (Trade) Dose Ordered Sig/Saurav Route PRN Reason Start Time Stop Time Status Last Admin Dose Admin Pantoprazole Sodium (Protonix Inj) 40 mg DAILY PRN IVP SEE LABEL COMMENTS 06/16/17 09:00 Morphine Sulfate (Morphine Inj) 2 mg Q4H PRN IV PUSH BREAKTHROUGH 06/15/17 15:00 06/16/17 17:45 Acetaminophen (Tylenol) 650 mg Q4H PRN PO TEMPERATURE > 101.5 F 06/15/17 09:45 Naloxone HCl (Narcan Inj) 0.4 mg UNSCH PRN IV PUSH RESPIRATORY RATE LESS THAN 10 06/15/17 09:45 Diphenhydramine HCl (Benadryl Inj) 25 mg Q6H PRN IV PUSH ITCHING 06/15/17 09:45 CRADLE SLIDE MAKER Dosage Infused (Pha) 1 Q8HR .XX 06/15/17 14:00 06/19/17 06:00 Amlodipine Besylate (Norvasc) 10 mg DAILY PO 06/16/17 09:00 06/20/17 10:07 Atorvastatin Calcium (Lipitor) 80 mg HS PO 06/15/17 21:00 06/19/17 19:54 Estrogens Conjugated (Premarin) 1.25 mg DAILY PO 06/16/17 09:00 Future Hold 06/16/17 09:20 Lamotrigine (LaMICtal) 100 mg DAILY PO 06/16/17 09:00 06/20/17 10:07 Metoprolol Tartrate (Lopressor) 50 mg DAILY PO 06/16/17 09:00 06/20/17 10:07 Mirtazapine (Remeron) 15 mg HS PO 06/15/17 21:00 06/19/17 19:55 Pantoprazole Sodium (Protonix) 40 mg DAILY PO 06/16/17 09:00 06/20/17 10:07 Enoxaparin Sodium (Lovenox Inj) 40 mg Q24H SQ 06/16/17 13:00 06/19/17 12:11 Oxycodone/ Acetaminophen (Percocet 10-325 Mg) 2 tab Q4H PRN PO PAIN SCALE 6 TO 10 06/19/17 11:00 06/20/17 10:07 Oxycodone/ Acetaminophen (Percocet 10-325 Mg) 1 tab Q4H PRN PO PAIN SCALE 1 TO 5 06/19/17 11:00 (Geri Vallecillo) Medical Decision Making MDM Remarks 77 y/o female s/p L2-3 laminectomy with interbody arthrodesis using PEEK cage bone graft, transpedicular screws and rods 06/15/17 (Geri Vallecillo) Plan Plan Remarks cont encourage mobilization, up in chair bid cont opiates prn post-op pain lovenox, SCDs and TEDs for dvt prophylaxis dc to SNF when bed available return to office 06/29/17 for suture removal (Geri Vallecillo) Attending Statement The exam, history, and the medical decision-making described in the above note were completed with the assistance of the mid-level provider. I reviewed and agree with the findings presented. I attest that I had a [id number] encounter with the patient on the same day, and personally performed and documented my assessment and findings in the medical record. (Roger Gilman MD) Geri Vallecillo Jun 20, 2017 10:50 Roger Gilman MD Jun 20, 2017 19:21
[2017-06-20 10:55] VITALS: BP 158/70; PULSE 94; RESP 20; TEMP 97.6; O2SAT 95
[2017-06-20] MEDS: ENOXAPARIN SODIUM 40 MG/0.4 ML SYRINGE SQ SCH (10:55)
[2017-06-20 12:00] VITALS: BP 158/72; PULSE 96; RESP 16; TEMP 97.6; O2SAT 92
[2017-06-20] MEDS ORDERED: NORC5TAB PO (15:14)
[2017-06-20] MEDS ORDERED: ZOFR4TAB PO (15:14)
--- NOTE | 2017-06-21 10:47 | HHI.DS ---
Discharge Summary Admission Date Jun 15, 2017 at 06:19 Discharge Date: Jun 20, 2017 Admitting Diagnosis s/p lumbar fusion (1) S/P lumbar spinal fusion ICD Code: Z98.1 - Arthrodesis status Brief History ms Bhatia is a 77 year-old female who presented with intractable mechanical back pain and hernando evidence of L3 left lower rextremity radiculopathy secondary to severe degenerative disk disease, spondylolisthesis, and secondary stenosis. She failed maximum nonsurgical management including multiple modalities of conservative treatment as well as pain management interventions by an interventional pain specialist. A surgical decompression and arthrodhesis were indicated as a last resort. CBC/BMP: 06/18/17 0506 06/18/17 0506 Imaging Last Impressions Lumbar Spine X-Ray 06/15/17 0000 Signed Impressions: Service Date/Time: Thursday, June 15, 2017 09:38 - CONCLUSION: Fluoroscopic images during placement of rods and screws at L2-3. Intervertebral disc device also seen. Jose Peters MD Hospital Course Ms. Bhatia s/p L2-L3 laminectomy, interbody arthrodhesis using PEEK cage and autologous bone graft, L2-L3 instrumental fixation using transpedicular screws and rods, L2-L3 posterolateral fusion using autologous bone graft. Microsurgical dissection on 06/15/17 for spondylolisthesis. 06/16: Surgical pain controlled on IT COMPLIANCE MANAGER, reports if she does not press the button she will have severe surgical pain. Denies chest pain, shortness of breath, or difficulty breathing. 2/: reports of stiffness, and increase pain if she tries to move. 2/3: pt seen around 10am this morning during rounds. 2/4: patient still reports of moderate stiffness and pain in low back. PT in room now to mobilize. dc planning to SNF. +multiple BM She was discharged to SNF. Pt Condition on Discharge: Stable Discharge Disposition: Discharge to SNF Discharge Instructions DIET: Follow Instructions for: Heart Healthy Diet ACTIVITIES You can perform: Weight Bearing As Rufus ADDITIONAL Activity Instructio: Avoid strenuous activities, heavy lifting over 5 lbs, overhead activities, repetitive bending, twisting, pushing, pulling or any activities which might result in stress over the spine. Avoid situation that will put at risk for falls. Use assistive device as needed for walking. Wear provided back brace when out of bed. Follow up Referrals: Neurosurgery @ [facility] - Dr Gilman with Geri Vallecillo Margaux A. PA Jun 21, 2017 10:47
== END 2017-06-20 18:57 | DRG 455 ==
LOC: HSDI 06:19 → N06B 17:26
PROVIDERS: ADMIT Neurological Surgery; ATTEND Neurological Surgery
PROC: 0SG0071 Fusion of Lumbar Vertebral Joint with Autologous Tissue Substitute, Posterior Approach, Posterior Column, Open Approach (ICD-10-PCS; 2017-06-15)
PROC: 0QB20ZZ Excision of Right Pelvic Bone, Open Approach (ICD-10-PCS; 2017-06-15)
PROC: 0ST20ZZ Resection of Lumbar Vertebral Disc, Open Approach (ICD-10-PCS; 2017-06-15)
PROC: 0SG00AJ Fusion of Lumbar Vertebral Joint with Interbody Fusion Device, Posterior Approach, Anterior Column, Open Approach (ICD-10-PCS; principal; 2017-06-15 08:30)
DX: M51.16 Intervertebral disc disorders with radiculopathy, lumbar region (principal); N28.1 Cyst of kidney, acquired; I10 Essential (primary) hypertension; M43.16 Spondylolisthesis, lumbar region; M48.061 Spinal stenosis, lumbar region without neurogenic claudication; G89.29 Other chronic pain; K21.9 Gastro-esophageal reflux disease without esophagitis; M54.2 Cervicalgia; Z85.72 Personal history of non-Hodgkin lymphomas; E78.5 Hyperlipidemia, unspecified; Z90.710 Acquired absence of both cervix and uterus; Z86.010 Personal history of colon polyps; Z86.73 Personal history of transient ischemic attack (TIA), and cerebral infarction without residual deficits; Z23 Encounter for immunization
CPT/HCPCS: 72100; 76000; 80048; 85025; 85610; 86850; 86900; 86901; 90686; 94150; C1713; J0131; J0690; J1100; J1170; J1580; J1650; J2250; J2270; J2370; J2405; J2710; J3010; J3370; J3480; J7040; J7050; J7120; L0484; Q2038

== ENCOUNTER 2017-09-22 15:15 | Emergency (ER) | payer MEDICARE ==
[~2017-09-22] VITALS: Ht 157.5 cm; Wt 62.4 kg
[~2017-09-22 15:15] MED LIST changes: +NEXI40CA PO; +NORC5TAB PO; +ZOFR4TAB PO
[2017-09-22 15:24] VITALS: BP 127/57; PULSE 77; RESP 16; TEMP 99.3; O2SAT 97
--- NOTE | 2017-09-22 16:39 | RADRPT ---
EXAM DATE/TIME: 09/22/2017 16:16 [facility] COMPARISON: No previous studies available for comparison. INDICATIONS : Right hand pain, swelling for 3 days with no known injury MEDICAL HISTORY : Rheumatoid arthritis. Osteoarthritis. SURGICAL HISTORY : None. ENCOUNTER: Initial ACUITY: 3 days PAIN SCORE: 5/10 LOCATION: Right entire hand FINDINGS: Degenerative changes at the first carpometacarpal joint. Degenerative changes at the second and thir d IP joints. Degenerative changes at the third PIP joint. Alignment anatomic. No fracture. CONCLUSION: Degenerative changes, no fracture. Sandoval Lieberman MD FACR on September 22, 2017 at 16:36 Board Certified Radiologist. This report was verified electronically.
--- NOTE | 2017-09-22 16:40 | RADRPT ---
EXAM DATE/TIME: 09/22/2017 16:16 [facility] COMPARISON: No previous studies available for comparison. INDICATIONS : Right wrist pain for 3 days with no known injury MEDICAL HISTORY : Rheumatoid arthritis. Osteoarthritis. SURGICAL HISTORY : None. ENCOUNTER: Initial ACUITY: 3 days PAIN SCORE: 6/10 LOCATION: Right entire wrist FINDINGS: Degenerative changes at the first carpometacarpal joint. Mild degenerative changes at the radiocarpa l joint. Anatomic alignment without fracture. CONCLUSION: Degenerative changes without fracture Sandoval Lieberman MD FACR on September 22, 2017 at 16:37 Board Certified Radiologist. This report was verified electronically.
[2017-09-22] MEDS ORDERED: TRAM50 PO (17:33)
--- NOTE | 2017-09-22 17:33 | PD ---
HPI . Hand pain Chief Complaint: Edema Time Seen by Provider: 15:53 Travel History International Travel<30 days: No Contact w/Intl Traveler<30days: No Traveled to known affect area: No History of Present Illness HPI Patient presents with chief complaint of atraumatic right hand pain. Onset was 3 days ago. Pain is rated 7-8/10. No modifying factors. PFSH Past Medical History Hx Anticoagulant Therapy: Yes (coumadin) Cancer: Yes ([facility]) Cardiovascular Problems: Yes (htn on meds) Chemotherapy: Yes Cerebrovascular Accident: Yes (cva x 2) Diabetes: No Endocrine: No Gastrointestinal Disorders: Yes (reflux) Genitourinary: No Hepatitis: No Hiatal Hernia: No Hypertension: Yes Immune Disorder: Yes (RA) Musculoskeletal: Yes (disc compression, arthritis) Neurologic: Yes (2 strokes-1 yr prior, tingling in hands ) Psychiatric: No Reproductive: No Respiratory: Yes (asthma) Thyroid Disease: No Tetanus Vaccination: > 5 Years Influenza Vaccination: No ?: Not Past Surgical History Abdominal Surgery: No AICD: No Cardiac Surgery: No Ear Surgery: No Endocrine Surgery: No Eye Surgery: Yes (bilat cat) Genitourinary Surgery: No Gynecologic Surgery: Yes (hysterectomy) Hysterectomy: Yes Joint Replacement: No Neurologic Surgery: Yes (cervical 9 yrs ago, 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) Oral Surgery: No Pacemaker: No Thoracic Surgery: No Other Surgery: Yes Social History Alcohol Use: No Tobacco Use: No Substance Use: No Allergies-Medications (Allergen,Severity, Reaction): Coded Allergies: No Known Allergies (Verified Allergy, Severe, 09/22/17) Reported Meds & Prescriptions Reported Meds & Active Scripts Active Reported Nexium (Esomeprazole DR) 40 Mg Capdr 40 Mg PO DAILY Mirtazapine 15 Mg Tab 15 Mg PO HS Atorvastatin (Atorvastatin Calcium) 80 Mg Tab 80 Mg PO HS Amlodipine (Amlodipine Besylate) 10 Mg Tab 10 Mg PO DAILY Warfarin 10 Mg Tab 10 Mg PO DAILY Metoprolol Tartrate 50 Mg Tab 50 Mg PO DAILY Premarin (Estrogens Conjugated) 1.25 Mg Tab 1.25 Mg PO DAILY Review of Systems Except as stated in HPI: all other systems reviewed are Neg Physical Exam Narrative GENERAL: Awake and alert and in no acute distress. SKIN: Warm and dry. HEAD: Normocephalic/atraumatic. EYES: Pupils are equal. Extraocular movements are intact. NECK: Normal range of motion. CARDIOVASCULAR: Regular rate and rhythm. RESPIRATORY: Nonlabored respirations. MUSCULOSKELETAL: Arthritic hands. Tenderness of the PIP joint of the right middle finger and the ulnar styloid of the right wrist NEUROLOGICAL: Nonfocal. PSYCHIATRIC: Appropriate mood and affect. Data Data Last Documented VS Vital Signs Date Time Temp Pulse Resp B/P (MAP) Pulse Ox O2 Delivery O2 Flow Rate FiO2 09/22/17 15:24 99.3 77 16 127/57 (80) 97 Orders Orders Hand, Complete ([id number]) (09/22/17 15:59) Wrist, Complete ([id number]) (09/22/17 15:59) Gc And Chlamydia Pcr (09/22/17 16:22) Wet Prep Profile (09/22/17 16:22) Urinalysis - C+S If Indicated (09/22/17 16:22) Ed Urine Pregnancytest Poc (09/22/17 16:22) MDM Medical Decision Making Medical Screen Exam Complete: Yes Emergency Medical Condition: Yes Differential Diagnosis Differential diagnosis of joint pain includes but is not limited to arthritis, gout, sprain/strain, fracture, dislocation, bursitis Narrative Course This patient presents complaining with right hand pain. It is atraumatic. However, she is concerned that she has broken something. X-rays were ordered. Last Impressions Wrist X-Ray 09/22/17 [id number] Signed Impressions: Service Date/Time: Friday, September 22, 2017 16:16 - CONCLUSION: Degenerative changes without fracture Sandoval Lieberman MD FACR Hand X-Ray 09/22/17 [id number] Signed Impressions: Service Date/Time: Friday, September 22, 2017 16:16 - CONCLUSION: Degenerative changes, no fracture. Sandoval Lieberman MD FACR This patient's hand and wrist pain and swelling is due to arthritis. She is on Coumadin so nonsteroidal anti-inflammatory agents are contraindicated. I will give her 12 Ultram and have her follow-up with her primary care provider for ongoing treatment. Diagnosis Primary Impression: Arthritis Patient Instructions: Arthritis (ED), General Instructions Med/Other Pt SpecificInfo: Prescription(s) given Scripts Tramadol (Ultram) 50 Mg Tab 50 MG PO Q4H Y for PAIN, #12 TAB 0 Refills Prov: Yudi Elaine MD 09/22/17 Disposition: 01 DISCHARGE HOME Condition: Stable Yudi Elaine MD September 22, 2017 17:33
[2017-09-22 17:45] VITALS: BP 145/88
== END 2017-09-22 18:11 | disposition home or self-care (01) ==
LOC: PHED 15:15
DX: M19.031 Primary osteoarthritis, right wrist (principal); M19.041 Primary osteoarthritis, right hand; I10 Essential (primary) hypertension; K21.9 Gastro-esophageal reflux disease without esophagitis; M06.9 Rheumatoid arthritis, unspecified; J45.909 Unspecified asthma, uncomplicated; Z79.01 Long term (current) use of anticoagulants; Z79.899 Other long term (current) drug therapy; Z86.73 Personal history of transient ischemic attack (TIA), and cerebral infarction without residual deficits
CPT/HCPCS: 73110; 73130; 99283